=== PATIENT | female | born 1965 | race Caucasian/White ===

== ENCOUNTER 2019-05-18 07:40 | Day surgery (SDC) | payer MEDICAID, OTHER ==
[~2019-05-18] VITALS: Ht 167.6 cm; Wt 87.2 kg
[2019-05-18] VITALS (10 sets, daily range): BP systolic 114–140; BP diastolic 60–78; PULSE 76–86; RESP 9–19; Ht 167.6 cm; Wt 87.2 kg
[~2019-05-18 07:40] MED LIST: ACETAMINOPHEN 500 MG TAB PO ONE; BIMA2.5D BOTH EYES; BROMFENAC SODIUM 1.7 ML OPH DROP OPER SCH; CYAN500T55 PO; CYCLOPENTOLATE 2% 2 ML OPH OPER SCH; DORZ10DR5 BOTH EYES; FLUC100T39 PO; GLIM4TAB3 PO; INSU100I27 SQ; KETO5DRO79 LEFT EYE; LACTATED RINGER'S 1,000 ML IV SCH; LEVO125T71 PO; LIDOCAINE 3.5% GEL TUBE OPER SCH; LIRA0.6P SQ; LORA10TA3 PO; METF750T43 PO; METH500T8 PO; MOXIFLOXACIN 0.5% 3 ML OPH OPER SCH; OMEG-57 PO; PHENYLephrine 10% 5 ML OPH OPER SCH; TETRACAINE 0.5% 4 ML OPH OPER SCH; TRAZ-111 PO; TROPICAMIDE 1% 15 ML OPH OPER SCH; [UNRECOGNIZED DRUG - CODE] BOTH EYES
[2019-05-18] MEDS ORDERED: EPINEPHrine 1 MG INJ ONE (09:34)
[2019-05-18] MEDS ORDERED: LIDOCAINE 2%/EPI (MDV) 20ML INJ INJ SCH (10:00)
[2019-05-18] MEDS ORDERED: LIDOCAINE 2% (SDV) 5 ML INJ INJ SCH (10:00)
[2019-05-18] MEDS ORDERED: LIDOCAINE 2% (MDV) 20 ML INJ INJ SCH (10:00)
[2019-05-18] MEDS ORDERED: TRYPAN BLUE 0.5 ML SYG IO ONE (10:01)
[2019-05-18] MEDS ORDERED: TOBRAMYCIN 0.3% 5 ML OPH ONE (10:01)
[2019-05-18] MEDS ORDERED: TOBRAMYCIN 0.3% 3.5 GM OPH OINT ONE (10:01)
[2019-05-18] MEDS ORDERED: CARBACHOL 0.01% 1.5 ML OPH INJ ONE (10:01)
[2019-05-18] MEDS ORDERED: NA HYALURONATE/CHONDROITIN 0.5 ML SYG ONE (10:01)
[2019-05-18] MEDS ORDERED: MIDAZOLAM 1 MG/ML 2 ML INJ ONE ×2 (10:06→10:42)
[2019-05-18] MEDS ORDERED: FENTAnyl 50 MCG/ML VIAL ONE (10:07)
[2019-05-18] MEDS ORDERED: CEFAZOLIN 1 GM INJ ONE ×2 (10:07→10:11)
[2019-05-18] MEDS ORDERED: HYDROmorphONE 1 MG/5 ML IV SYRINGE IV ONE (11:12)
[2019-05-18] MEDS ORDERED: ONDANSETRON 4 MG INJ ONE (11:12)
[2019-05-18] MEDS ORDERED: EPHEDrine 25 MG/5 ML SYG IV PRN (11:30)
[2019-05-18] MEDS ORDERED: DIPHENHYDRAMINE 50 MG INJ IV PRN (11:30)
[2019-05-18] MEDS ORDERED: LABETALOL HCL 20MG INJ IV PRN (11:30)
[2019-05-18] MEDS ORDERED: HYDROmorphONE 1 MG/5 ML IV SYRINGE IV PRN ×3 (11:30)
[2019-05-18] MEDS ORDERED: LEVALBUTEROL (NEB) 0.63 MG/3 ML AMP HHN PRN (11:30)
[2019-05-18] MEDS ORDERED: FENTAnyl 50 MCG/ML VIAL IV PRN ×2 (11:30)
[2019-05-18] MEDS ORDERED: ONDANSETRON 4 MG INJ IV PRN (11:30)
[2019-05-18] MEDS ORDERED: ATROPINE 1 MG/10 ML SYRINGE IV PRN (11:30)
[2019-05-18] MEDS ORDERED: morphine 2 MG INJ IV PRN ×2 (11:30)
[2019-05-18] MEDS ORDERED: OXYCODONE/ACETAMINOPHEN (5/325) TAB PO PRN ×2 (11:30)
[2019-05-18] MEDS ORDERED: KETOROLAC 15 MG INJ IV PRN (11:30)
[2019-05-18] MEDS ORDERED: ALBUTEROL 0.083% (NEB) 2.5 MG/3 ML AMP HHN PRN (11:30)
[2019-05-18] MEDS ORDERED: hydrALAzine 20 MG INJ IV PRN (11:30)
== END 2019-05-18 12:45 | disposition home or self-care (01) ==
LOC: SDS 07:40
PROVIDERS: ATTEND Ophthalmology
DX: H25.12 Age-related nuclear cataract, left eye (principal); E11.9 Type 2 diabetes mellitus without complications; E03.9 Hypothyroidism, unspecified
CPT/HCPCS: 66984; 82962; 84703; J0171; J0690; J1170; J2250; J2405; J3010; V2632